=== PATIENT | female | born 1985 | race Hispanic/Latino ===

== ENCOUNTER 2017-08-05 18:44 | Emergency (ER) | payer SELFPAY ==
[2017-08-05] MEDS ORDERED: Metoclopramide HCl 10 MG/2 ML VIAL ONE (19:50)
[2017-08-05] MEDS ORDERED: diphenhydrAMINE HCl 50 MG/ML 1 ML VIAL ONE (19:50)
[2017-08-05] MEDS ORDERED: Acetaminophen 500 MG TAB ONE (19:50)
[2017-08-05 20:26] LABS: #Basophils 0.1 thou/uL (0.0-0.2); #Eosinphils 0.1 thou/uL (0.0-0.7); #Lymphocytes 2.7 thou/uL (1.20-3.40); #Monocytes 0.6 thou/uL (0.11-0.59); #Neutrophils 4.4 thou/uL (1.40-6.50); Hematocrit 36.2 % (36.0-47.0); Red Blood Cell (RBC) Count 3.88 mill/uL (4.20-5.40); White Blood Cell (WBC) Count 7.8 thou/uL (4.8-10.8)
[2017-08-05 20:29] LABS: Bilirubin Negative (Negative); Blood, Urine Negative (Negative); Glucose, Urine (Dipstick) Negative (Negative); Ketone, Urine Negative (Negative); Nitrite Negative (Negative); Protein, Urine (Dipstick) Negative (Neg-Trace); Urobilinogen 0.2 mg/dL (0.2-1.0)
[2017-08-05 20:32] LABS: Bacteria/HPF 1+ HPF (None Seen); Hyaline Casts/LPF 0-3 HYALINE CAST LPF (0-3 Hyaline); RBC/HPF 0-3 HPF (0-3)
[2017-08-05 20:49] LABS: ALT (SGPT) 8 U/L (8-55); AST (SGOT) 16 U/L (5-34); Alkaline Phosphatase 95 U/L (40-150); Anion Gap 13 mmol/L (10-20); BUN (Urea Nitrogen) 4 mg/dL (7.0-18.7); Bilirubin, Total 0.4 mg/dL (0.2-1.2); Calc. Creatinine Clearance 0 mL/min (70-130); Calcium 8.8 mg/dL (7.8-10.44); Carbon Dioxide 22 mmol/L (22-29); Chloride 105 mmol/L (98-107); Estimated GFR-MDRD Greater than 90; Globulin 3.8 g/dL (2.4-3.5); Lipase 19 U/L (8-78); Protein, Total 7.2 g/dL (6.0-8.3)
--- NOTE | 2017-08-05 21:35 | ULT ---
OB ULTRASOUND: 08/05/17 HISTORY: Abdominal pain in patient with positive . FINDINGS: There is a single intrauterine gestation in cephalic presentation. The cardiac doppler demonstrates heart tones with a heart of 125 beats per minute. The placenta is located posteriorly wi thout evidence of placenta previa. Subjectively, there is a normal amount of amniotic fluid, and the amniotic fluid index is within normal limits measuring 17.5 cm. Cervical length measures 3.9 cm as measured on transabdominal imaging. MEASUREMENTS: Biparietal diameter 7.97 cm 32 weeks Head circumference 29.75 cm 32 weeks, 6 days Abdominal circumference 37.8 cm 31 weeks, 6 days Femur length 5.97 cm 31 weeks, 1 day The estimated gestational age by ultrasound was 32 weeks with an KAVEH on 09/30/17. Gestational age by the last menstrual period is 31 weeks and 4 days. The estimated weight by ultrasound is 1828 grams (4 lb). This represents 44th percentile for f etal weight. The cerebellum, visualized portions of the spine, four chambered heart, stomach, bilateral kid neys, urinary bladder, cord insertion, three vessel cord are visualized and demonstrate a normal son ographic appearance. No definite anomalies are seen. IMPRESSION: 1. Single intrauterine gestation in cephalic presentation with heart tones documented. 2. Gestational age by ultrasound is 32 weeks with KAVEH on 09/30/17. 3. Estimated weight is 1828 grams (4 lb). 4. Amniotic fluid index is 17.5 cm. POS: [facility]
[2017-08-05] MEDS ORDERED: Nitrofurantoin Monohyd/M-Cryst 100 MG CAP PO SCH (23:15)
== END 2017-08-05 23:00 | disposition home or self-care (01) ==
LOC: ERS 18:44
DX: O23.43 Unspecified infection of urinary tract in pregnancy, third trimester (principal); Z3A.32 32 weeks gestation of pregnancy
CPT/HCPCS: 76805; 80053; 81003; 81015; 83690; 85025; 87086; 96361; 96374; 96375; J1200; J2765